=== PATIENT | male | born 1935 | race Caucasian/White ===

== ENCOUNTER 2019-03-12 09:37 | Day surgery (SDC) | payer MEDICARE, BC ==
[2019-03-12] MEDS: Polymyxin B/Trimethoprim 10 ML Bottle EYERT SCH ×4 (10:16→12:12)
[2019-03-12] MEDS: Brimonidine 0.2% Ophth Soln 5 ML Bottle EYERT SCH ×4 (10:25→12:12)
[2019-03-12] MEDS: Phenylephrine 2.5% Ophth Soln 2 ML Bot EYERT SCH ×6 (10:30→11:41)
[2019-03-12] MEDS: Tropicamide 1% Ophth Soln 15 ML Bottle EYERT SCH ×4 (10:37→11:21)
--- NOTE | 2019-03-12 10:39 | PCM.PREANE ---
Preanesthetic Assessment - Anesthesia/Transfusion/Family Hx Anesthesia History: Prior Anesthesia Without Reaction Family History of Anesthesia Reaction: No Transfusion History: No Prior Transfusion(s) Intubation History: Unknown - Review of Systems General: No Symptoms Pulmonary: No Symptoms Cardiovascular: No Symptoms Gastrointestinal: No Symptoms Neurological: No Symptoms Other: Reports: None - Physical Assessment NPO Status Date: 03/11/19 NPO Status Time: 20:00 ASA Class: 2 Mental Status: Alert & Oriented x3 Airway Class: Mallampati = 2 Thyro-Mental Finger Breadths: 3 Mouth Opening Finger Breadths: 3 ROM/Head Extension: Full Lungs: Clear to Auscultation, Normal Respiratory Effort Cardiovascular: Regular Rate, Regular Rhythm - Allergies Allergies/Adverse Reactions: Allergies Allergy/AdvReac Type Severity Reaction Status Date / Time codeine Allergy Swollen Verified 03/11/19 16:08 Tongue loratadine [From Claritin] Allergy Cannot Verified 03/11/19 16:08 Remember morphine Allergy Cannot Verified 03/11/19 16:08 Remember Penicillins Allergy Cannot Verified 03/11/19 16:08 Remember - Anesthesia Plan Beta Archie: Metoprolol Med Last Dose Date: 03/12/19 Med Last Dose Time: 07:00 - Acknowledgements Anesthesia Type Planned: MAC Pt an Appropriate Candidate for the Planned Anesthesia: Yes Alternatives and Risks of Anesthesia Discussed w Pt/Guardian: Yes Pt/Guardian Understands and Agrees with Anesthesia Plan: Yes PreAnesthesia Questionnaire HEENT History: Reports: Cataract Cardiovascular History: Reports: 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), CAD, High Cholesterol, Hypertension Respiratory History: Reports: None Gastrointestinal History: Reports: GERD Genitourinary History: Reports: None Musculoskeletal History: Reports: Arthritis, Osteoarthritis Neurological History: Reports: None Psychiatric History: Reports: Depression Endocrine/Metabolic History: Reports: None - Past Surgical History HEENT Surgical History: Reports: Cataract Surgery Cardiovascular Surgical History: Reports: Coronary Artery Bypass GI Surgical History: Reports: Appendectomy, Colonoscopy Musculoskeletal Surgical History: Reports: Hip Replacement ((R)) - HOME MEDS Home Medications: Home Meds Aspirin [Halfprin] 81 mg PO DAILY 02/11/19 [History] Cyanocobalamin/Folic Acid [Vitamin G92-Kowza Acid] 1 tab PO DAILY 02/11/19 [ History] Dutasteride [Avodart] 0.5 mg PO DAILY 02/11/19 [History] Losartan [Cozaar] 25 mg PO BEDTIME 02/11/19 [History] Metoprolol Tartrate 25 mg PO BID 02/11/19 [History] Rosuvastatin [Crestor] 10 mg PO DAILY 02/11/19 [History] Vit A/C/E AC/Znox/Cupric Oxide [Eye Vitamin-Minerals Tablet] 1 tab PO DAILY [History] Zolpidem [Ambien] 10 mg PO BEDTIME 02/11/19 [History] - CURRENT (IN HOUSE) MEDS Current Meds: Current Medications Brimonidine Tartrate (Alphagan 0.2% Ophth Soln) 0 ml EYERT ASDIRECTED DESTINEE Stop: 03/12/19 18:00 Last Admin: 03/12/19 10:25 Dose: 1 drop Cefuroxime Sodium (Zinacef) 0 mg EYERT ASDIRECTED DESTINEE Stop: 03/12/19 18:00 Lidocaine HCl (Xylocaine-Mpf 1%) 0 ml INJECT ASDIRECTED DESTINEE Stop: 03/12/19 18:00 Phenylephrine HCl (Manny-Synephrine 2.5% Ophth Soln) 0 ml EYERT ASDIRECTED DESTINEE Stop: 03/12/19 18:00 Last Admin: 03/12/19 10:30 Dose: 1 drop Pilocarpine HCl (Pilocar 4% Ophth Soln) 0 ml EYERT ASDIRECTED DESTINEE Stop: 03/12/19 18:00 Polymyxin/Trimethoprim Sulfate (Polytrim Ophth Soln) 0 ml EYERT ASDIRECTED DESTINEE Stop: 03/12/19 18:00 Last Admin: 03/12/19 10:16 Dose: 1 drop Tetracaine HCl (Tetracaine 0.5% Steri-Unit Ayse) 0 ml EYERT ASDIRECTED DESTINEE Stop: 03/12/19 18:00 Tropicamide (Mydriacyl 1% Ophth Soln) 0 ml EYERT ASDIRECTED DESTINEE Stop: 03/12/19 18:00 Last Admin: 03/12/19 10:37 Dose: 1 drop
--- NOTE | 2019-03-12 10:47 | PCM.PREANE ---
Preanesthetic Assessment - Anesthesia/Transfusion/Family Hx Anesthesia History: Prior Anesthesia Without Reaction Family History of Anesthesia Reaction: No Transfusion History: No Prior Transfusion(s) Intubation History: Unknown - Review of Systems General: No Symptoms Pulmonary: No Symptoms Cardiovascular: No Symptoms Gastrointestinal: No Symptoms Neurological: No Symptoms Other: Reports: None - Physical Assessment NPO Status Date: 03/11/19 NPO Status Time: 20:00 ASA Class: 2 Mental Status: Alert & Oriented x3 Airway Class: Mallampati = 1 Dentition: Reports: Normal Dentition Thyro-Mental Finger Breadths: 3 Mouth Opening Finger Breadths: 3 ROM/Head Extension: Full Lungs: Clear to Auscultation, Normal Respiratory Effort Cardiovascular: Regular Rate, Regular Rhythm - Allergies Allergies/Adverse Reactions: Allergies Allergy/AdvReac Type Severity Reaction Status Date / Time codeine Allergy Swollen Verified 03/11/19 16:08 Tongue loratadine [From Claritin] Allergy Cannot Verified 03/11/19 16:08 Remember morphine Allergy Cannot Verified 03/11/19 16:08 Remember Penicillins Allergy Cannot Verified 03/11/19 16:08 Remember - Acknowledgements Anesthesia Type Planned: MAC Pt an Appropriate Candidate for the Planned Anesthesia: Yes Alternatives and Risks of Anesthesia Discussed w Pt/Guardian: Yes Pt/Guardian Understands and Agrees with Anesthesia Plan: Yes PreAnesthesia Questionnaire HEENT History: Reports: Cataract Cardiovascular History: Reports: 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), CAD, High Cholesterol, Hypertension Respiratory History: Reports: None Gastrointestinal History: Reports: GERD Genitourinary History: Reports: None Musculoskeletal History: Reports: Arthritis, Osteoarthritis Neurological History: Reports: None Psychiatric History: Reports: Depression Endocrine/Metabolic History: Reports: None - Past Surgical History HEENT Surgical History: Reports: Cataract Surgery Cardiovascular Surgical History: Reports: Coronary Artery Bypass GI Surgical History: Reports: Appendectomy, Colonoscopy Musculoskeletal Surgical History: Reports: Hip Replacement ((R)) - SUBSTANCE USE Smoking Status *Q: Never Smoker - HOME MEDS Home Medications: Home Meds Aspirin [Halfprin] 81 mg PO DAILY 02/11/19 [History] Cyanocobalamin/Folic Acid [Vitamin C42-Pnkvi Acid] 1 tab PO DAILY 02/11/19 [ History] Dutasteride [Avodart] 0.5 mg PO DAILY 02/11/19 [History] Losartan [Cozaar] 25 mg PO BEDTIME 02/11/19 [History] Metoprolol Tartrate 25 mg PO BID 02/11/19 [History] Rosuvastatin [Crestor] 10 mg PO DAILY 02/11/19 [History] Vit A/C/E AC/Znox/Cupric Oxide [Eye Vitamin-Minerals Tablet] 1 tab PO DAILY [History] Zolpidem [Ambien] 10 mg PO BEDTIME 02/11/19 [History] - CURRENT (IN HOUSE) MEDS Current Meds: Current Medications Brimonidine Tartrate (Alphagan 0.2% Ophth Soln) 0 ml EYERT ASDIRECTED DESTINEE Stop: 03/12/19 18:00 Last Admin: 03/12/19 10:25 Dose: 1 drop Cefuroxime Sodium (Zinacef) 0 mg EYERT ASDIRECTED DESTINEE Stop: 03/12/19 18:00 Lidocaine HCl (Xylocaine-Mpf 1%) 0 ml INJECT ASDIRECTED DESTINEE Stop: 03/12/19 18:00 Phenylephrine HCl (Manny-Synephrine 2.5% Ophth Soln) 0 ml EYERT ASDIRECTED DESTINEE Stop: 03/12/19 18:00 Last Admin: 03/12/19 10:43 Dose: 1 drop Pilocarpine HCl (Pilocar 4% Ophth Soln) 0 ml EYERT ASDIRECTED DESTINEE Stop: 03/12/19 18:00 Polymyxin/Trimethoprim Sulfate (Polytrim Ophth Soln) 0 ml EYERT ASDIRECTED DESTINEE Stop: 03/12/19 18:00 Last Admin: 03/12/19 10:16 Dose: 1 drop Tetracaine HCl (Tetracaine 0.5% Steri-Unit Ayse) 0 ml EYERT ASDIRECTED DESTINEE Stop: 03/12/19 18:00 Tropicamide (Mydriacyl 1% Ophth Soln) 0 ml EYERT ASDIRECTED DESTINEE Stop: 03/12/19 18:00 Last Admin: 03/12/19 10:37 Dose: 1 drop
[2019-03-12] MEDS: Tetracaine HCl/PF 0.5% 4 ML Bottle EYERT SCH ×3 (11:23→11:53)
[2019-03-12] MEDS: Cefuroxime 10 MG/ML SYRINGE EYERT SCH ×3 (11:23→12:11)
[2019-03-12] MEDS: Lidocaine 1% PF 2 ML SDV INJECT SCH ×2 (11:23→11:53)
[2019-03-12] MEDS: Pilocarpine 4% Ophth Soln 15 ML Bot EYERT SCH ×2 (11:24→12:12)
--- NOTE | 2019-03-12 12:14 | PCM48HPAN ---
Post Anesthesia Note - EVALUATION WITHIN 48HRS OF ANESTHETIC Vital Signs in Normal Range: Yes Patient Participated in Evaluation: Yes Respiratory Function Stable: Yes Airway Patent: Yes Cardiovascular Function Stable: Yes Hydration Status Stable: Yes Pain Control Satisfactory: Yes Nausea and Vomiting Control Satisfactory: Yes Mental Status Recovered: Yes Vital Signs: Last Vital Signs Temp 36.3 C 03/12/19 10:05 Pulse 52 L 03/12/19 10:05 Resp 16 03/12/19 10:05 BP 138/54 L 03/12/19 10:05 Pulse Ox 96 03/12/19 10:05
== END 2019-03-12 12:22 | disposition home or self-care (01) ==
LOC: JD.SDS 09:37
PROVIDERS: ATTEND Ophthalmology
DX: H25.811 Combined forms of age-related cataract, right eye (principal); H21.81 Floppy iris syndrome; H21.41 Pupillary membranes, right eye; H52.31 Anisometropia; H18.232 Secondary corneal edema, left eye; H16.223 Keratoconjunctivitis sicca, not specified as Sjogren's, bilateral; H16.103 Unspecified superficial keratitis, bilateral; M19.90 Unspecified osteoarthritis, unspecified site; F32.9 Major depressive disorder, single episode, unspecified; E78.00 Pure hypercholesterolemia, unspecified; I10 Essential (primary) hypertension; Z96.1 Presence of intraocular lens; Z88.5 Allergy status to narcotic agent; Z88.8 Allergy status to other drugs, medicaments and biological substances; Z88.0 Allergy status to penicillin; Z79.82 Long term (current) use of aspirin; Z79.899 Other long term (current) drug therapy
CPT/HCPCS: 66982; J0697; J2001; C1780

== ENCOUNTER → 2022-04-10 | Day surgery (SDC) | payer MEDICARE, BC ==
[2022-04-10] MEDS: Brimonidine 0.2% Ophth Soln 5 ML Bottle EYEBOTH SCH ×2 (13:14→13:45)
[2022-04-10] MEDS: Phenylephrine 2.5% Ophth Soln 2 ML Bot EYEBOTH SCH ×2 (13:16→13:24)
[2022-04-10] MEDS: Tropicamide 1% Ophth Soln 15 ML Bottle EYEBOTH SCH ×2 (13:20→13:26)
== END ==
LOC: JD.SDS 12:50
PROVIDERS: ATTEND Ophthalmology
DX: H26.493 Other secondary cataract, bilateral (principal); H16.103 Unspecified superficial keratitis, bilateral; H02.834 Dermatochalasis of left upper eyelid; H02.831 Dermatochalasis of right upper eyelid; H16.223 Keratoconjunctivitis sicca, not specified as Sjogren's, bilateral; T15.11XA Foreign body in conjunctival sac, right eye, initial encounter; H21.81 Floppy iris syndrome; I10 Essential (primary) hypertension; E78.00 Pure hypercholesterolemia, unspecified; M19.90 Unspecified osteoarthritis, unspecified site; Z90.49 Acquired absence of other specified parts of digestive tract; Z98.890 Other specified postprocedural states; Z79.899 Other long term (current) drug therapy; Z88.8 Allergy status to other drugs, medicaments and biological substances; Z88.0 Allergy status to penicillin; Z88.6 Allergy status to analgesic agent; Z88.5 Allergy status to narcotic agent; Z96.1 Presence of intraocular lens
CPT/HCPCS: A9270-GY; J3490